=== PATIENT | female | born 1995 | race Caucasian/White ===

== ENCOUNTER → 2016-09-23 | Outpatient (CLI) | payer BC ==
[~2016-09-23] VITALS: Ht 172.7 cm; Wt 77.3 kg
[~2016-09-23] MED LIST: CIPRO 500MG TA500 MG PO; NORCO 325 MG-51 TAB PO; PROAIR HFA0.09 MG/AC IH
[2016-09-23 13:09] VITALS: BP 111/57; PULSE 90; TEMP 99
== END ==
LOC: EUO 12:10
DX: H61.22 Impacted cerumen, left ear (principal); H70.92 Unspecified mastoiditis, left ear
CPT/HCPCS: J0696; J1100; J2270; J7120